=== PATIENT | female | born 1995 | race Caucasian/White ===

== ENCOUNTER 2021-01-16 22:03 | Emergency (ER) | payer OTHER ==
[~2021-01-16] VITALS: Ht 162.6 cm; Wt 65.8 kg
[2021-01-17 00:47] VITALS: BP 152/102
== END 2021-01-17 00:48 | disposition left against medical advice (07) ==
LOC: M.ERS 22:03
DX: Z32.01 Encounter for pregnancy test, result positive (principal); Z53.21 Procedure and treatment not carried out due to patient leaving prior to being seen by health care provider